=== PATIENT | female | born 1970 | race Caucasian/White ===

== ENCOUNTER → 2018-07-11 08:59 | Outpatient (CLI) | payer MEDICAID ==
[~2018-07-11 08:59] MED LIST: CALCIUM 500 +1 EAC3 PO; GABAPENTIN100 MG PO; PERCOCET 7.5/321 TAB PO; REQUIP1 MG
== END | disposition home or self-care (01) ==
LOC: D.MRI 08:59
DX: G25.81 Restless legs syndrome (principal)

== ENCOUNTER 2018-07-12 15:31 | Emergency (ER) | payer MEDICAID ==
[~2018-07-12] VITALS: Ht 170.2 cm; Wt 90.9 kg
[2018-07-12 15:53] VITALS: Ht 170.2 cm; Wt 90.9 kg
[2018-07-12] MEDS ORDERED: GABAPENTIN100 MG PO (15:56)
[2018-07-12] MEDS ORDERED: PERCOCET 7.5/321 TAB PO (15:56)
[2018-07-12] MEDS ORDERED: REQUIP1 MG (15:56)
[2018-07-12 16:50] LABS: BASOPHILS 0.2 % (0-2); EOSINOPHILS 3.1 % (0-7); HEMATOCRIT 35.9 % (36.0-48.0); HEMOGLOBIN 11.7 g/dL (12-16); IMMATURE GRANULOCYTES 0.2 % (0-5); LYMPHOCYTES 29.8 % (15-50); MCH 30.2 pg (26.0-34.0); MCHC 32.6 g/dL (31.0-37.0); MCV 92.5 fL (80.0-100.0); MEAN PLATELET VOLUME 10.4 fL (7.4-10.4); MONOCYTES 7.5 % (2-11); NEUTROPHILS 59.2 % (40-80); PLATELET COUNT 177 10x3/uL (130-400); RBC 3.88 10x6/uL (4.00-5.40); RDW 14.6 % (11.5-14.5); WBC 4.8 10x3/uL (4.8-10.8)
[2018-07-12 16:51] LABS: UDS - AMPHET NEGATIVE QUAL (NEGATIVE); UDS - BARB POSITIVE QUAL (NEGATIVE); UDS - BENZO NEGATIVE QUAL (NEGATIVE); UDS - COCAINE NEGATIVE QUAL (NEGATIVE); UDS - OPIATE POSITIVE QUAL (NEGATIVE); UDS - PCP NEGATIVE QUAL (NEGATIVE); UDS - THC NEGATIVE QUAL (NEGATIVE)
[2018-07-12 17:04] LABS: APPEARANCE CLEAR (CLEAR); BILIRUBIN NEGATIVE (NEGATIVE); COLOR YELLOW (YELLOW); GLUCOSE NEGATIVE (NEGATIVE); KETONE NEGATIVE (NEGATIVE); NITRITE NEGATIVE (NEGATIVE); PROTEIN NEGATIVE (NEGATIVE); SPECIFIC GRAVITY 1.025 (1.005-1.020); UROBILINOGEN NORMAL (NORMAL)
[2018-07-12 17:19] LABS: ALBUMIN 3.2 g/dL (3.4-5.0); ALKALINE PHOSPHATASE 61 U/L (46-116); ALT (SGPT) 21 U/L (10-68); BILIRUBIN - TOTAL 0.15 mg/dL (0.2-1.3); CALC OSMOLALITY 275 mosm/kg (275-300); CALCIUM 7.8 mg/dL (8.5-10.1); CARBON DIOXIDE 28.1 mmol/L (21.0-32.0); CHLORIDE - SERUM 104 mmol/L (98-107); CREATININE - SERUM 0.7 mg/dL (0.6-1.3); GLUCOSE 78 mg/dL (74-106); POTASSIUM - SERUM 3.9 mmol/L (3.5-5.1); PROTEIN - SERUM 6.6 g/dL (6.4-8.2); SODIUM 139 mmol/L (136-145); UREA NITROGEN 10 mg/dL (7-18); eGFR NON AFRICAN AMERICAN > 90 mL/min (90-120)
[2018-07-12 17:27] LABS: PRO BNP 595 pg/mL (0-125)
[2018-07-12] MEDS ORDERED: CALCIUM 500 +1 EAC3 PO (17:51)
[2018-07-12 18:27] VITALS: BP 121/84
== END 2018-07-12 18:30 | disposition home or self-care (01) ==
LOC: D.ER 15:31
PROVIDERS: Family Medicine
DX: M25.572 Pain in left ankle and joints of left foot (principal); M25.571 Pain in right ankle and joints of right foot; E83.51 Hypocalcemia; R60.0 Localized edema; F17.200 Nicotine dependence, unspecified, uncomplicated

== ENCOUNTER 2018-08-08 08:00 | Outpatient (CLI) | payer MEDICAID ==
[2018-07-12 15:53] VITALS: BMI 31.4
== END 2018-08-08 09:00 | disposition home or self-care (01) ==
LOC: D.MAMMO 08:00
DX: Z12.31 Encounter for screening mammogram for malignant neoplasm of breast (principal)

== ENCOUNTER → 2018-09-19 11:56 | Outpatient (CLI) | payer BC ==
[2018-07-12 15:53] VITALS: BMI 31.4
== END | disposition home or self-care (01) ==
LOC: D.RAD 11:56
DX: M54.5 Low back pain (principal); M62.81 Muscle weakness (generalized)

== ENCOUNTER → 2018-09-22 10:15 | Outpatient (CLI) | payer MEDICAID ==
[2018-07-12 15:53] VITALS: BMI 31.4
== END | disposition home or self-care (01) ==
LOC: D.US 10:15
PROVIDERS: ATTEND Emergency Medicine
DX: R10.2 Pelvic and perineal pain (principal)

== ENCOUNTER → 2018-09-30 10:17 | Outpatient (CLI) | payer MEDICAID ==
[2018-07-12 15:53] VITALS: BMI 31.4
== END | disposition home or self-care (01) ==
LOC: D.US 10:00
PROVIDERS: ATTEND Emergency Medicine
DX: R10.2 Pelvic and perineal pain (principal); Z87.42 Personal history of other diseases of the female genital tract

== ENCOUNTER → 2018-11-09 16:43 | Outpatient (CLI) | payer MEDICAID ==
[2018-07-12 15:53] VITALS: BMI 31.4
[~2018-11-09 16:43] MED LIST changes: +ACETAMINOPHEN500 M1 PO; +ADDERALL 20 MG20 M1 PO; +ADVAIR HFA 230-12 GM INH; +ALBUTEROL SULF8.5 GM INH; +AMBIEN10 MG PO; +BUTALB-APAP-CA1 EACH PO; +KLONOPIN0.5 MG PO; +NEURONTIN600 MG PO; +OMEPRAZOLE CAP 20M PO; +OXYCODONE HCL5 M1 PO; +PERCOCET 10-321 EAC1 PO; +REQUIP1 MG PO; +SYNTHROID25 MCG PO; +ZOLOFT100 MG PO
[2018-11-21 07:03] VITALS: BMI 37.1
== END | disposition home or self-care (01) ==
LOC: D.RAD 16:43
PROVIDERS: ATTEND Emergency Medicine
DX: R05 Cough (principal)

== ENCOUNTER → 2018-11-10 10:22 | Outpatient (CLI) | payer MEDICAID ==
[2018-07-12 15:53] VITALS: BMI 31.4
[2018-11-21 07:03] VITALS: BMI 37.1
== END | disposition home or self-care (01) ==
LOC: D.US 11-09 10:00
PROVIDERS: ATTEND Legal Medicine
DX: E01.0 Iodine-deficiency related diffuse (endemic) goiter (principal)

== ENCOUNTER 2018-11-21 05:32 | Day surgery (SDC) | payer MEDICAID ==
[~2018-11-21] VITALS: Ht 160 cm; Wt 94.8 kg
[2018-11-21] VITALS (9 sets, daily range): BP systolic 112–133; BP diastolic 57–78; Ht 160 cm; Wt 94.8 kg
[~2018-11-21 05:32] MED LIST changes: -ACETAMINOPHEN500 M1 PO; -ADDERALL 20 MG20 M1 PO; -ADVAIR HFA 230-12 GM INH; -ALBUTEROL SULF8.5 GM INH; -AMBIEN10 MG PO; -BUTALB-APAP-CA1 EACH PO; -KLONOPIN0.5 MG PO; -NEURONTIN600 MG PO; -OMEPRAZOLE CAP 20M PO; -OXYCODONE HCL5 M1 PO; -PERCOCET 10-321 EAC1 PO; -REQUIP1 MG PO; -SYNTHROID25 MCG PO; -ZOLOFT100 MG PO
[2018-11-21 06:06] LABS: CALC OSMOLALITY 279 mosm/kg (275-300); CALCIUM 8.3 mg/dL (8.5-10.1); CARBON DIOXIDE 28.1 mmol/L (21.0-32.0); CHLORIDE - SERUM 105 mmol/L (98-107); CREATININE - SERUM 0.8 mg/dL (0.6-1.3); GLUCOSE 100 mg/dL (74-106); POTASSIUM - SERUM 3.9 mmol/L (3.5-5.1); SODIUM 141 mmol/L (136-145); UREA NITROGEN 9 mg/dL (7-18); eGFR NON AFRICAN AMERICAN 81 mL/min (90-120)
[2018-11-21 06:12] LABS: BASOPHILS 0.4 % (0-2); EOSINOPHILS 2.3 % (0-7); HEMATOCRIT 41.7 % (36.0-48.0); HEMOGLOBIN 13.9 g/dL (12-16); IMMATURE GRANULOCYTES 0.1 % (0-5); LYMPHOCYTES 24.6 % (15-50); MCH 30.3 pg (26.0-34.0); MCHC 33.3 g/dL (31.0-37.0); MCV 90.8 fL (80.0-100.0); MEAN PLATELET VOLUME 11.4 fL (7.4-10.4); NEUTROPHILS 66.6 % (40-80); PLATELET COUNT 198 10x3/uL (130-400); RBC 4.59 10x6/uL (4.00-5.40); WBC 7.3 10x3/uL (4.8-10.8)
[2018-11-21] MEDS ORDERED: OMEPRAZOLE CAP 20M PO (06:26)
[2018-11-21] MEDS ORDERED: PERCOCET 10-321 EAC1 PO (06:27)
[2018-11-21] MEDS ORDERED: KLONOPIN0.5 MG PO (06:27)
[2018-11-21] MEDS ORDERED: ADDERALL 20 MG20 M1 PO (06:28)
[2018-11-21] MEDS ORDERED: SYNTHROID25 MCG PO (06:28)
[2018-11-21] MEDS ORDERED: NEURONTIN600 MG PO (06:30)
[2018-11-21] MEDS ORDERED: ALBUTEROL SULF8.5 GM INH (06:30)
[2018-11-21] MEDS ORDERED: ZOLOFT100 MG PO (06:31)
[2018-11-21] MEDS ORDERED: ADVAIR HFA 230-12 GM INH (06:31)
[2018-11-21] MEDS ORDERED: AMBIEN10 MG PO (06:31)
[2018-11-21] MEDS ORDERED: BUTALB-APAP-CA1 EACH PO (06:32)
[2018-11-21 07:08] LABS: HCG URINE NEGATIVE (NEGATIVE)
--- NOTE | 2018-11-21 11:00 | NUR ---
PT RECEIVED BY BED FROM RECOVERY ROOM, SHE IS SLEEPING BUT WILL RESPOND TO NAME BEING CALLED. IV TO RIGHT FOREARM, PATENT AND INFUSING PER ORDERS. NC IN PLACE AT 4L/MIN O2 98%. COOK CATH TO BEDSIDE DRAIN WITH 200ML CLEAR ORANGE URINE NOTED. SCD IN PLACE BILAT AND PLACED ON PUMP. ASSISTED PT TO TURN ON TO HER LEFT SIDE, PILLOW TO HER BACK AND KNEES. ABD SOFT TO TOUCH, BOWEL SOUNDS HYPOACTIVE AT THIS TIME, SHE DENIES NAUSEA AND RATES PAIN AT 5/10. SIDE RAILS UP X 2 WITH CALL LIGHT WITH IN HER REACH.
--- NOTE | 2018-11-21 11:15 | NUR ---
ANABELDAUmang GIVEN SIVP ORDERED. SIDE RAILS UP X 2 WITH CALL LIGHT IN REACH, LIGHTS TURNED OUT PER REQUEST.
--- NOTE | 2018-11-21 11:50 | NUR ---
PT RESTING WITH EYES CLOSED AND RESP EVEN, NO SIGNS OF DISTRESS, LEFT UNDISTURBED AT THIS TIME. SIDE RAILS UP X 2 WITH CALL LIGHT IN HER HAND.
--- NOTE | 2018-11-21 12:30 | NUR ---
ROUNDS MADE, PT AWAKEN EASILY WITH DOOR BEING OPENED. ASSISTED WITH POSITION CHANGE TO RIGHT LATERAL. RATES PAIN AT 3/10, LARGE CUP OF ICE WITH LEMON COMANCHE SODA PER REQUEST. NO OTHER NEEDS AT THIS TIME. SIDE RAILS REMAIN UP X 2 WITH CALL LIGHT IN REACH.
--- NOTE | 2018-11-21 13:00 | NUR ---
CALLED TO ROOM BY PT, SHE IS AWAKE AND ALERT, RATES PAIN AT 4-5/10 AND REQUESTING PAIN MED. MEDS GIVEN SCANNED TO EMAR. TURN SELF TO BACK WITH HEAD OF BED RAISED. ALSO PROVIDED WITH SMALL APPLE JUICE, AND HOT CHICKEN BROTH. SIDE RAILS UP X 2, CALL LIGHT IN REACH AND FAMILY AT BEDSIDE.
--- NOTE | 2018-11-21 13:15 | NUR ---
MAVERICK TAKEN TO PATIENT PER REQUEST. SHE IS ABLE TO USE IS X 1 WITH STRONG COUGH. SHE QUESTIONS ABOUT HER ALBUTEROL INHALER AND UNDERSTANDS THAT DR JOHNSON WOULD BE CONTACTED FOR ORDER. SHE IS VISITING WITH FAMILY WITH NO OTHER NEEDS.
--- NOTE | 2018-11-21 14:18 | NUR ---
PT RESTING ON RIGHT SIDE, TV ON. SHE DENIES NEEDS AT THIS TIME AND RATES PAIN AT 3/10. LIGHTS TURNED DOWN PER REQUEST. SIDE RAILS UP X 2 PHONE AND CALL LIGHT IN REACH.
--- NOTE | 2018-11-21 15:00 | NUR ---
DR JOHNSON GIVEN REPORT OF PT REQUEST FOR ALBUTEROL INHALER THAT SHE USES PRN FOR SHORTNESS OF BREATH. ORDER RECEIVED
--- NOTE | 2018-11-21 16:00 | NUR ---
PT CALLS OUT WITH QUESTIONS ABOUT INHALER, THIS RN TO BEDSIDE AND PER PT REQUEST RT NOTIFIED TO COME GIVE TREATMENT.
--- NOTE | 2018-11-21 16:30 | NUR ---
ANABELDAL GIVEN IVP ORDERED. PT STATES THAT SHE IS HAVING A LOT MORE CRAMPING AND RATES PAIN/DISCOMFORT AT 7/10. SMALL CUP OF CHICKEN BROTH ALSO PROVIDED AT THIS TIME REQUESTED. CALL LIGHT IN REACH WITH SIDE RAILS UP X 2.
--- NOTE | 2018-11-21 17:27 | NUR ---
PAIN REASSESMENT, RATES AT 7-03/04. DILAUDID 2MG IV GIVEN. POSITION CHANGED TO LEFT SIDE WITH NO ASSISTANCE NEEDED. RT NOTIFIED 2ND TIME FOR TREATMENT WITH INHALER.
--- NOTE | 2018-11-21 18:12 | NUR ---
CALLED TO ROOM, PT ASKING ABOUT HER HOME MEDS ZEUS KLONPIN AND REQUIP. SHE STATES THAT SHE "REALLY NEEDS THOSE TONIGHT, DOES NOT WANT TO MISS A DOSE" EXPLAINED THAT YES THEY ARE ON HOME MED LIST BUT WOULD NEED TO CONTACT DOCTOR FOR AN ORDER. RT NOTIFIED WHILE IN PT ROOM WITH REQUEST FOR THEM TO COME WITH PT INHALER.
--- NOTE | 2018-11-21 18:50 | NUR ---
REPORT TO 7P-7A
[2018-11-21] MEDS ORDERED: REQUIP1 MG PO (19:29)
--- NOTE | 2018-11-21 19:36 | NUR ---
DR JETER PAGED WITH RETURN CALL RECEIVED AT 193. INFORMED OF PT'S DESIRE OF HOME MEDS KLONOPIN AND REQUIP TO BE REORDERED AT THIS TIME. WILL NOT REORDER KLONOPIN AT THIS TIME WHILE PT IS ON PAIN MEDICATION HOWEVER HE WILL CALL BACK REGARDING THE REQUIP 1 MG. Umang BRYANT RN
--- NOTE | 2018-11-21 19:50 | NUR ---
DR JETER CALLED BACK AND ORDER REC'D PER Talia GARZA RN TO ORDER HOME MED REQUIP ONE MG PO Q HS. Umang BRYANT RN
--- NOTE | 2018-11-21 19:58 | NUR ---
PT REC'D IN BED AT THIS TIME. LUNGS CLEAR. BS+. INCISIONS TO ABDOMEN X5 INTACT WITHOUT S/S OF INFECTION NOTED. POX ON ROOM AIR 94%. SCDS IN ROOM BUT NOT ON. PT WILL NOT PUT ON DUE TO RESTLESS LEG SYNDROME. INPOTRANCE OF SCD EXPLAINED AND PT AWARE OF THE THE NEED TO PREVENT BLOOD CLOTS POST OPERATIVELY. NURSE EXPLAINS THAT AN ORDER IS NEEDED FOR HER MEDICATION AND THAT [facility] WILL CALL FOR AN ORDER AND THEN PLACE SCDS. UNDERSTANDING VERBALIZED. COOK CATH PATENT WITH BEENA URINE NOTED AT THIS TIME. SIDERAILS UP FOR SAFETY X2. CALL LIGHT IN PT REACH. Umang BRYANT RN
--- NOTE | 2018-11-21 20:34 | NUR ---
NAOMIE FROM RESPIRATORY CALLED AND INFORMED OF ALBUTEROL INHALER ORDER FOR PT. HE STATES THAT HE DOES NOT HAVE THE INHALER. 2036 GRACIA FROM PHARMACY CALLED AND INFORMED OF ORDER AND INFORMED THAT REPIRATORY DOES NOTED HAVE THE INHALER FOR THE PATIENT. SHE STATES THAT WHE WILL DISTRIBUTE ANOTHER INHALER. 2037 PHARMACY NOTIFIED PER THIS NURSE AND INFORMED THAT PHARMACE WILL ADMINISTER ANOTHER INHALER TO ICU. Umang BRYANT RN
--- NOTE | 2018-11-21 21:03 | NUR ---
RESPIRATORY HERE AT THIS TIME. REPIRATORY STATES UNAWARE IF TREATMENT FOR PATIENT. Umang BRYANT RN
--- NOTE | 2018-11-21 22:12 | NUR ---
PT MEDICATED AT THIS TIME WITH DILAUDID 2 MG FOR PAIN LEVEL OF 6. WILL CONTINUE TO MONITOR PAIN. Umang BRYANT RN
--- NOTE | 2018-11-21 23:19 | NUR ---
VITAL SIGNS TAKEN AT THIS TIME PT PULSE OX ON ROOM AIR 89%. TCDB PERFORMED AT THIS TIME. PT O2 SATS ONLY 89-90% ON ROOM AIR. O2 AT 2L VIA NC PLACED. O2 SATS TO 91% PN ROOM AIR. O2 INCREASED TO 3L VIA NC. O2 SATS 94-97% WILL CONTINUE TO MONITOR THIS SIFT. Umang BRYANT RN
--- NOTE | 2018-11-21 23:19 | NUR ---
PT MEDICATED WITH TORADOL 30 MG AT THIS TIME. PAIN LEVEL OF 4 AT THIS TIME. DEEP BREATHING DOME AT THIS TIME. Umang BRYANT RN
--- NOTE | 2018-11-22 00:56 | NUR ---
TUYLENOL 1000 MG GIVEN PO SCHEDULED. PAIN LEVEL 2-3 PER PT ON PAIN SCALE. Umang BRYANT RN
--- NOTE | 2018-11-22 03:32 | NUR ---
PT COMPLAINS OF PAIN AT A LEVEL OF 6. MEDICATEE WIOWTH DILAUDID 2 MG. CORI CONTINUE TO MONITOR. Umang BRYANT RN
--- NOTE | 2018-11-22 04:30 | NUR ---
PT CALLED WITH COMPLAINTS OF WHEEZING AT THIS TIME. POX 96% ON 3L NC. LUNGS CLEAR AT THIS TIME. RESP CALLED FOR EVAL AND PRN INHALER. Umang BRYANT RN
[2018-11-22 04:33] VITALS: BP 107/56
--- NOTE | 2018-11-22 04:40 | NUR ---
RESP IRATORY THERAPY HERE FOR TREATMENT. Umang BRYANT RN
--- NOTE | 2018-11-22 05:50 | NUR ---
O2 TURNED OFF AT THIS TIME. WILL MONITOR O2 SATS. Umang BRYANT RN
--- NOTE | 2018-11-22 06:00 | NUR ---
PT O2 SATS DOWN TO 92 % ON ROOM AIR. O2 AT 2L VIA NC PLACED. O2 SAT UP TO 95%. Umang BRYANT RN
--- NOTE | 2018-11-22 07:30 | NUR ---
DR JOHNSON ON UNIT WITH ROUNDS MADE. NEW ORDERS RECEIVED FOR PO PAIN MEDS, SALINE LOCK IV AND REMOVE COOK AND VAG PACK AT 0930.
[2018-11-22 07:45] VITALS: BP 122/76
--- NOTE | 2018-11-22 07:45 | NUR ---
AM ASSESSMENT COMPLETED. PT RATES HER PAIN AT 7/10, MEDS GIVEN SCANNED TO EMAR. COOK CATH TO BEDSIDE DRAIN WITH 125ML CLEAR URINE NOTED TO COLLECTION CANISTER. IV PATENT AND INFUSING VIA PUMP AT 125ML/HR. BOWEL SOUNDS ACTIVE, PT REPORTS THAT SHE IS PASSING GAS. DIET CHANGED TO REGULAR AND DIETARY NOTIFIED. LARGE ICE WATER PER REQUEST. SIDE RAILS UP X 2 WITH CALL LIGHT IN REACH, PT DAUGHTER AT BEDSIDE.
--- NOTE | 2018-11-22 08:30 | NUR ---
pain reassessment pt rates at 11/02. denies needs at this time.
--- NOTE | 2018-11-22 09:30 | NUR ---
to room to d/c rahman and remove packing, pt tearful asking if could be done when her daughter got back from getting her breakfast. reassured her that was ok. to call out when ready.
--- NOTE | 2018-11-22 10:00 | NUR ---
CALLED TO ROOM, PT DAUGHTER NOW PRESENT AND PATIENT DOES APPEAR TO BE MUCH CALMER WITH HER AT BEDSIDE. PT POSITION SELF TO HER BACK AND FLEX KNEES INSTRUCTED. VAG PACKING REMOVED QUICKLY BUT EASILY AND PT TOLERATES WELL. COOK CATH D/C PER PROTOCOL WITH TOTAL OF 350ML NOTED. PT THEN MOVES SELF TO SITTING UP ON SIDE OF BED. SHE DENIES NAUSEA OR DIZZINESS AND ASK IF SHE COULD "JUST SIT UP" FOR A MOMENT. DAUGHTER REMAINS AT BEDSIDE.
--- NOTE | 2018-11-22 10:40 | NUR ---
BACK TO ROOM AND PT ABLE TO AMBULATE PER SELF TO BATHROOM, VOIDS APPROX 50ML WITHOUT COMPLAINT. JOSE CARE PER SELF, GOWN CHANGED AND MESH BRIEFS ON. PINK PAD AND CHUX CHANGED AND CLEAN TOP SHEET WITH BLANKET PROVIDED. IV SALINE LOCKED WITHOUT DIFFICULTY. LARGE CUP OF ICE AND DR KIM PER REQUEST. SIDE RAILS UP X 2 WITH PHONE AND CALLL LIGHT IN REACH.
--- NOTE | 2018-11-22 11:00 | NUR ---
RT PAGED PER PT REQUEST FOR INHALER.
--- NOTE | 2018-11-22 11:15 | NUR ---
RT AT BEDSIDE.
--- NOTE | 2018-11-22 11:30 | NUR ---
PAIN MED GIVEN CHARTED ON EMAR. RATES PAIN AT 7-8/10, TURNS SELF TO LEFT SIDE WITH PILLOW FOR SUPPORT. LIGHTS TURNED OUT PER HER REQUEST TO TRY AND SLEEP. SIDE RAILS UP X 2 WITH CALL LIGHT IN REACH.
--- NOTE | 2018-11-22 12:08 | NUR ---
REGULAR DIET SERVED. DR KIM WITH ICE PER PT REQUEST. RATES PAIN AT 3/10 AT THIS TIME. NO OTHER NEEDS VOICED.
--- NOTE | 2018-11-22 13:02 | NUR ---
PAIN MED GIVEN PER PT REQUEST. RATES PAIN AT 6/10. UP TO BATHROOM. SHE IS ABLE TO VOID 100ML CLEAR URINE WITHOUT COMPLAINT. BLADDER SCANNED AFTER VOID SHOWS 75ML RESIDUAL.
--- NOTE | 2018-11-22 13:45 | NUR ---
PT UP TO VOID, ABLE TO VOID 125ML WITHOUT COMPLAINTS. ONCE BACK TO BED BLADDER SCANNED TO SHOW 75ML. DR JOHNSON CALLED WITH REPORT. WILL CHECK AFTER NEXT VOID ALSO.
--- NOTE | 2018-11-22 15:15 | NUR ---
VERBAL AND WRITTEN DISCHARGE INSTRUCTIONS GONE OVER WITH PT AND FAMILY. WRITTEN SCRIPT FOR OXYCONDONE IR 5MG WITH INFO ABOUT MED. SALINE LOCK REMOVED WITH CATH INTACT. PT DENIES ANY QUESTIONS OR CONCERNS ABOUT DISCHARGE. PT GETTING DRESSED AND WILL CALL WHEN READY FOR WHEELCHAIR. FAMILY REMAINS AT BEDSIDE TO ASSIST.
--- NOTE | 2018-11-22 15:30 | NUR ---
TAKEN OUT BY WHEELCHAIR, HOME BY PRIVATE CAR WITH HER DAUGHTER.
--- NOTE | 2018-11-22 16:00 | NUR ---
PT CALLS OUT THAT SHE HAS GOTTEN UP TO BATHROOM AGAIN. THIS RN TO BEDSIDE, TOTAL OF 100ML NOTED TO COLLECTION HAT, 25ML RESIDUAL NOTED WHEN BLADDER SCANNED. DR JOHNSON CALLED REPORT, NOVEMBER D/C HOME WHEN PT IS READY. PT IS AWARE OF THIS AND WAITING ON HER DAUGHTER TO RETURN
[2018-11-22] MEDS ORDERED: OXYCODONE HCL5 M1 PO (16:31)
[2018-11-22] MEDS ORDERED: ACETAMINOPHEN500 M1 PO (16:32)
--- NOTE | 2018-11-24 13:22 | DS ---
PATIENT:MERISSA GRAHAM :70 MEDICAL RECORD: [id number] DISCHARGE SUMMARY ADMISSION DATE: 11/21/18 DISCHARGE DATE: 11/22/18 DATE OF ADMISSION: 11/21/2018 DATE OF DISCHARGE: 11/22/2018 ADMISSION DIAGNOSES: 1. Dysfunctional uterine bleeding. 2. Cystocele. 3. Stress urinary incontinence. DISCHARGE DIAGNOSES: 1. Dysfunctional uterine bleeding. 2. Cystocele. 3. Stress urinary incontinence. PROCEDURES PERFORMED: 1. Diagnostic laparoscopy. 2. Total laparoscopic hysterectomy. 3. Bilateral salpingo-oophorectomy. 4. Retropubic mid urethral sling. HISTORY OF PRESENT ILLNESS AND INDICATION FOR PROCEDURE: See the H&P in the chart. SUMMARY OF HOSPITALIZATION: The patient was admitted to the hospital and underwent procedure without difficulty. Postop day #1, the patient had successful voiding trials with less than 50 cc of postvoid residual. The patient was discharged home with the standard postoperative precautions. Discharge medications will include oxycodone, Neurontin, and Mobic. The patient will follow up in the clinic in 2 weeks. TRANSINT:[id number] Voice Confirmation ID: [id number] DOCUMENT ID: [id number] ZENIA JOHNSON MD at 1322 CC: [id number] DICTATION DATE: 11/22/18 1624 PACKING MACHINE INSPECTOR: 11/23/18 0725 [facility] 11/22/[address] [id number]
--- NOTE | 2018-11-24 13:22 | OP ---
PATIENT NAME: MERISSA GRAHAM MEDICAL RECORD: [id number] :70 LOCATION:D.OPS ADMISSION DATE: SURGEON: DWAINE JOHNSON MD DATE OF OPERATION: 11/21/2018 PREOPERATIVE DIAGNOSES: 1. Dysfunctional uterine bleeding. 2. Stress urinary incontinence. PROCEDURES: 1. Total laparoscopic hysterectomy. 2. Bilateral salpingo-oophorectomy. 3. Mid urethral sling. 4. Cystoscopy. SURGEON: Dwaine Johnson MD DISTRIBUTION LINEMAN: Javed Fitzpatrick [employer] DESIGNER: Benny Overton ANESTHESIOLOGIST: Con Varghese MD ANESTHETIC: General. FINDINGS: Uterus with first- to second-degree prolapse and noted apical defect. Ovaries, tubes, and uterus unremarkable. At the time of cystoscopy, ureteral orifices were unobstructed with good flow of urine and the mucosa was unremarkable. SPECIMENS REMOVED: Uterus, tubes, and ovaries. SPECIMEN DISPOSITION: Pathology for permanent. ESTIMATED BLOOD LOSS: Less than or equal to 150 cc. FLUIDS: Lactated Ringer's 1900 cc. URINE OUTPUT: 250 cc of Pyridium-stained fluid. COMPLICATION: None. DRAIN: Daniels to gravity. INDICATION: The patient is a 48-year-old female with heavy painful periods. The patient also has stress urinary incontinence. The patient desires definitive treatment. Risks, benefits, and limitations of this procedure have been described including the specific risk of Coloplast mesh placement. DESCRIPTION OF PROCEDURE: After informed consent was assured, the patient was taken to the operating room and anesthetic was obtained. The patient was placed [facility] stirrups and then prepped and draped. An incision was made to accommodate a 5-mm trocar, which was inserted without difficulty. Pneumoperitoneum was now developed. With the patient in Trendelenburg position, accessory ports were placed in right and left lower quadrants. Through the left OPERATIVE REPORT [id number] MERISSA GRAHAM lower quadrant port, a grasper was inserted and the tube and ovary were elevated. Using a Thunderbeat coagulation cutter, the infundibulopelvic ligament was serially clamped, coagulated, and . This process continues underneath the ovary across the round ligaments and the anterior leaf of the broad ligament was developed past the bladder flap in the midline. Posterior leaf was dissected free of the vascular bundle and the vascular bundle was now compressed, coagulated, and at the level of the uterine manipulator. Attention was now directed to the left adnexa. The left adnexa was elevated and the coagulation cutters were again used to compress, coagulate, and separate its attachments. This dissection was carried underneath the ovary across the round ligament and anterior leaf of the broad ligament was opened and the bladder flap now fully developed. Posterior leaf was opened and the vascular bundle of the left was identified, compressed, coagulated, and at the cuff of the uterine manipulator. Dissection of the uterus from its attachments to the vagina begins at the 6 o'clock position and was carried out to the 10 o'clock position and concludes from the 6 o'clock back around to the 10 o'clock from the right. Uterus was pulled into the vagina and pneumoperitoneum was established. Adequate hemostasis was achieved. The uterus was now removed and gas was turned off. The ports were closed and covered with sterile drape. Speculum was introduced in the vagina and the uterosacral ligaments of the right and left side identified, stick tied, and tagged. The cuff was now closed in anterior to posterior fashion with interrupted Vicryl stitches. The aforementioned uterosacral stitch was now tied, securing the apex of the vaginal cuff to the ligament support. The pneumoperitoneum was now reestablished and visualization of the pelvis revealed adequate hemostasis. The pelvis was irrigated and irrigant removed. The trocars were removed under direct visualization and then the primary trocar was removed after release of the pneumoperitoneum. The subcuticular stitches applied at all laparoscopic port sites and Dermabond was applied. The symphysis pubis was now examined and exit location for mid urethral sling needle was selected. These were marked. The legs were positioned and the mid urethral dissection was completed after injecting the site with 0.5% lidocaine with epinephrine. Once the dissection has been concluded, catheter was inserted, balloon inflated, and mid urethra identified. With the bladder deflected to the right, the mid urethral sling was loaded into the needle and the needle was passed in the space of Retzius out into the abdomen through the before-mentioned exit site right at the midline. Cystoscopy was performed without tenting, retraction of tissue, or evidence of trauma to the bladder mucosa. This needle was removed and the left arm of the sling was loaded. With the bladder now deflected to the right, the needle was passed up to the space of Retzius and onto the abdomen. Cystoscopy again revealed no retraction or damage to the bladder mucosa. The legs were now positioned into a neutral position and a hemostat was used to separate it and placement of the mid urethral sling. Once the sling has been put into place, the hemostat was noted to be easily passed underneath this between the urethra. The tape was now trimmed and the exit site was closed with Dermabond. The mucosal incision was closed with a running stitch of interrupted Vicryl. Sponge, lap, and needle counts were correct times 2. The patient was awakened and went to the recovery room in stable condition. Packing will be in place for 24 hours. TRANSINT:[id number] Voice Confirmation ID: [id number] DOCUMENT ID: [id number] OPERATIVE REPORT [id number] MERISSA GRAHAM,DWAINE Ingram MD at 1322 CC: [id number] DICTATION DATE: 11/21/18 1010 MASTER AT ARMS: 11/21/18 1406 [facility] 11/22/18 [id number] [place] [address]
== END 2018-11-22 15:30 | disposition home or self-care (01) ==
LOC: D.LD 05:32 → D.OPS 05:32 → D.LD 10:27 → D.OPS 11-22 15:30 → D.PAN 11-23 07:30
PROVIDERS: ATTEND Obstetrics & Gynecology
DX: N93.8 Other specified abnormal uterine and vaginal bleeding (principal); N39.3 Stress incontinence (female) (male); Z01.812 Encounter for preprocedural laboratory examination

== ENCOUNTER 2018-11-25 23:09 | Emergency (ER) | payer MEDICAID ==
[~2018-11-25] VITALS: Ht 160 cm; Wt 92.3 kg
[~2018-11-25 23:09] MED LIST changes: +ACETAMINOPHEN500 M1 PO; +ADDERALL 20 MG20 M1 PO; +ADVAIR HFA 230-12 GM INH; +ALBUTEROL SULF8.5 GM INH; +AMBIEN10 MG PO; +BUTALB-APAP-CA1 EACH PO; +KLONOPIN0.5 MG PO; +NEURONTIN600 MG PO; +OMEPRAZOLE CAP 20M PO; +OXYCODONE HCL5 M1 PO; +PERCOCET 10-321 EAC1 PO; +REQUIP1 MG PO; +SYNTHROID25 MCG PO; +ZOLOFT100 MG PO
[2018-11-25 23:11] VITALS: BP 156/95; Ht 160 cm; Wt 92.3 kg
[2018-11-25] MEDS ORDERED: AZOPT 1% OPHT D10 ML (23:15)
[2018-11-25] MEDS ORDERED: PERCOCET 5-3251 TAB PO (23:15)
[2018-11-25] MEDS ORDERED: MOBIC7.5 MG PO (23:15)
[2018-11-25] MEDS ORDERED: AZO (23:16)
[2018-11-25 23:28] LABS: BASOPHILS 0.2 % (0-2); EOSINOPHILS 3.3 % (0-7); HEMATOCRIT 39.7 % (36.0-48.0); HEMOGLOBIN 13.1 g/dL (12-16); IMMATURE GRANULOCYTES 0.2 % (0-5); LYMPHOCYTES 22.4 % (15-50); MCH 29.9 pg (26.0-34.0); MCV 90.6 fL (80.0-100.0); MEAN PLATELET VOLUME 10.7 fL (7.4-10.4); MONOCYTES 7.1 % (2-11); NEUTROPHILS 66.8 % (40-80); PLATELET COUNT 192 10x3/uL (130-400); RBC 4.38 10x6/uL (4.00-5.40); RDW 14.9 % (11.5-14.5); WBC 8.8 10x3/uL (4.8-10.8)
[2018-11-25 23:45] LABS: ALBUMIN 3.3 g/dL (3.4-5.0); ALKALINE PHOSPHATASE 80 U/L (46-116); ALT (SGPT) 25 U/L (10-68); BILIRUBIN - TOTAL 0.18 mg/dL (0.2-1.3); CALC OSMOLALITY 278 mosm/kg (275-300); CALCIUM 8.7 mg/dL (8.5-10.1); CHLORIDE - SERUM 104 mmol/L (98-107); CREATININE - SERUM 0.8 mg/dL (0.6-1.3); GLUCOSE 109 mg/dL (74-106); POTASSIUM - SERUM 4.4 mmol/L (3.5-5.1); PROTEIN - SERUM 6.9 g/dL (6.4-8.2); SODIUM 140 mmol/L (136-145); UREA NITROGEN 9 mg/dL (7-18); eGFR NON AFRICAN AMERICAN 81 mL/min (90-120)
[2018-11-25 23:49] LABS: APPEARANCE CLEAR (CLEAR); COLOR ORANGE (YELLOW); SPECIFIC GRAVITY 1.015 (1.005-1.020)
[2018-11-25 23:55] LABS: BACTERIA NONE SEEN /hpf (NONE SEEN); EPITHELIAL CELLS 0-5 /hpf (0-5); RED CELLS - URINE 0-5 /hpf (0-5); WHITE CELLS - URINE 0-5 /hpf (0-5)
== END 2018-11-26 00:50 | disposition home or self-care (01) ==
LOC: D.ER 23:09
PROVIDERS: Family Medicine
DX: G89.18 Other acute postprocedural pain (principal)

== ENCOUNTER 2019-05-30 21:21 | Emergency (ER) | payer MEDICAID ==
[~2019-05-30] VITALS: Ht 160 cm; Wt 77.3 kg
[~2019-05-30 21:21] MED LIST changes: +AZO; +AZOPT 1% OPHT D10 ML; +MOBIC7.5 MG PO; +PERCOCET 5-3251 TAB PO
[2019-05-30 21:29] VITALS: Ht 160 cm; Wt 77.3 kg
[2019-05-30] MEDS ORDERED: ZOLOFT100 MG PO (21:57)
[2019-05-30] MEDS ORDERED: ROBAXIN500 MG PO (22:43)
[2019-05-30] MEDS ORDERED: TORADOL10 MG PO (22:43)
[2019-05-30 23:12] VITALS: BP 147/100
== END 2019-05-30 23:12 | disposition home or self-care (01) ==
LOC: D.ER 21:21
DX: S93.402A Sprain of unspecified ligament of left ankle, initial encounter (principal); W17.2XXA Fall into hole, initial encounter; S39.012A Strain of muscle, fascia and tendon of lower back, initial encounter